=== PATIENT | male | born 1965 | race Caucasian/White ===

== ENCOUNTER 2024-09-14 11:37 | Emergency (ER) | payer OTHER ==
[2024-09-14] MEDS ORDERED: Bacitracin 1 PK ONE (13:04)
== END 2024-09-14 14:48 | disposition home or self-care (01) ==
LOC: NAV ERS 11:37
DX: S61.102A Unspecified open wound of left thumb with damage to nail, initial encounter (principal); W26.8XXA Contact with other sharp object(s), not elsewhere classified, initial encounter
CPT/HCPCS: 99283